=== PATIENT | male | born 1960 | race Two or more races ===

== ENCOUNTER 2020-10-13 02:50 | Emergency (ER) | payer OTHER ==
[~2020-10-13] VITALS: Ht 170.2 cm; Wt 70.0 kg
[2020-10-13 02:55] VITALS: BP 140/90
[2020-10-13] MEDS ORDERED: MAALOX/HYOSCYAMINE/LIDOCAINE 45 ML BTL ONE (03:18)
--- NOTE | 2020-10-13 03:25 | NUR ---
PT BROUGHT TO ROOM, C/O ANXIETY AND UPPER CHEST DISCOFORT. PT ON CR MONITOR. MD TO BEDSIDE TO EVAL PT. PT HAS PIV TO LEFT FA. 20 G, AND FLUSHES WELL. PT MEDICATED WITH GI COCKTAIL AND TOLERATED WELL, BUT SAYS HE FELT MORE ANXIOUS, BUT PT CALMED DOWN AND REMAINS ON CR MONITOR.
[2020-10-13] MEDS ORDERED: MAALOX/HYOSCYAMINE/LIDOCAINE 45 ML BTL PO ONE (03:30)
[2020-10-13 03:34] LABS: ALANINE AMINOTRANSFERASE 24 U/L (12-78); ALBUMIN 3.8 g/dL (3.4-5.0); ANION GAP 9 mmol/L (5-15); CALCIUM 8.4 mg/dL (8.5-10.1); CHLORIDE 109 mmol/L (98-107); CREATININE 1.13 mg/dL (0.7-1.3)
[2020-10-13 03:37] LABS: BASOPHILS % (AUTO) 1 % (0-1); EOSINOPHILS % (AUTO) 1 % (1-7); LYMPHOCYTES % (AUTO) 31 % (22-44); MEAN CORPUSCULAR HEMOGLOBIN 32.1 pg (27.5-34.5); MEAN CORPUSCULAR HGB CONC 33.8 g/dL (33.2-36.2); MEAN PLATELET VOLUME 8.5 fL (7.4-10.4); MONOCYTES % (AUTO) 11 % (2-9); NEUTROPHILS % (AUTO) 56 % (42-75); PLATELET COUNT 255 x10^3/uL (130-400); RED BLOOD COUNT 4.37 x10^6/uL (4.38-5.82); RED CELL DISTRIBUTION WIDTH 12.8 % (9.4-14.8)
[2020-10-13 03:39] LABS: ALKALINE PHOSPHATASE 71 U/L (45-117); BILIRUBIN,TOTAL 0.4 mg/dL (0.2-1.0); TOTAL PROTEIN 7.3 g/dL (6.4-8.2); TROPONIN I < 0.015 ng/mL (0.000-0.045)
--- NOTE | 2020-10-13 03:51 | NUR ---
PT CALM AND RESTING WITHOUT ISSUE. PTS SON AT BEDSIDE, PT REMAINS ON CR MONITOR.
--- NOTE | 2020-10-13 04:44 | NUR ---
F/U AND D/C INSTRUCTIONS GIVEN TO PT AND PRESCRIPTIONS AND HE V/U. EXPLAINED TO PT IN REGARDS TO MANAGING HIS ANXIETY BY MANAGING HIS GASTRIC REFLUX WHICH IS WHAT INCREASES THE PTS ANXIETY. PT AMBULATED TO DISCHARGE.
== END 2020-10-13 04:48 | disposition home or self-care (01) ==
LOC: ED 04:01
DX: K21.9 Gastro-esophageal reflux disease without esophagitis (principal); F41.1 Generalized anxiety disorder; I10 Essential (primary) hypertension; E78.5 Hyperlipidemia, unspecified
CPT/HCPCS: 36415; 71045; 80053; 83690; 84484; 85025; 93005; 99285